=== PATIENT | male | born 1950 | race Caucasian/White ===

== ENCOUNTER → 2017-12-22 | Outpatient (CLI) | payer MEDICARE ==
[~2017-12-22] MED LIST: ADJUSTABLE COMM1 MIS; BIOTCAP PO; COQ-100C5 P-ARTICULR; CPMMACHINE; FISH100020 PO; FLUT1SPR5 EACH NARE; FLUTI44I INH; GLUC500T4 PO; MELO15TA20 PO; MONT10TA4 PO; MULT-65 PO; PREV30CA36 PO; VENTAER INH; VITA500T83 PO; VITACAP7 PO; WALKER WHEELS/F1 MIS
[2017-12-22 09:38] LABS: BILIRUBIN, URINE NEG (NEG); BLOOD, URINE TRACE (NEG); GLUCOSE,URINE NEG (NEG); KETONE, URINE NEG (NEG); NITRITE,URINE NEG (NEG); PH, URINE 6.5 (5.0-8.5); URINE COLOR YELLOW (YELLW/STRAW); URINE LEUKOCYTE ESTERASE NEG (NEG)
[2017-12-22 09:41] LABS: BASOPHIL % 0.7 % (0.0-2.0); EOSINOPHIL # 0.5 TH/MM3 (0-0.4); EOSINOPHIL % 7.7 % (0.0-4.0); HEMATOCRIT 42.1 % (39.0-51.0); HEMOGLOBIN 14.4 GM/DL (13.0-17.0); LYMPH % 23.7 % (9.0-44.0); LYMPHOCYTE # 1.6 TH/MM3 (1.0-4.8); MEAN CELL VOLUME 95.4 FL (80.0-100.0); MEAN CORPUSCULAR HEMOGLOBIN 32.6 PG (27.0-34.0); MEAN CORPUSCULAR HGB CONC 34.2 % (32.0-36.0); MEAN PLATELET VOLUME 8.4 FL (7.0-11.0); MONO % 9.1 % (0.0-8.0); MONOCYTE # 0.6 TH/MM3 (0-0.9); NEUT % 58.8 % (16.0-70.0); PLATELET COUNT 235 TH/MM3 (150-450); RED BLOOD COUNT 4.41 MIL/MM3 (4.50-5.90); RED CELL DISTRIBUTION WIDTH 14.6 % (11.6-17.2); WHITE BLOOD COUNT 6.8 TH/MM3 (4.0-11.0)
[2017-12-22 09:42] LABS: PROTHROMBIN TIME - PATIENT 10.4 SEC (9.8-11.6)
[2017-12-22 10:16] LABS: ALBUMIN 3.8 GM/DL (3.4-5.0); AST (GOT) 18 U/L (15-37); BICARBONATE 29.6 MEQ/L (21.0-32.0); BLOOD UREA NITROGEN 15 MG/DL (7-18); CALCIUM 9.2 MG/DL (8.5-10.1); CHLORIDE 105 MEQ/L (98-107); CREATININE 0.78 MG/DL (0.60-1.30); GLOMERULAR FILTRATION RATE 99 ML/MIN (>89); GLUCOSE,FASTING 102 MG/DL (74-99); SODIUM (NA) 141 MEQ/L (136-145)
[2017-12-22 10:17] LABS: ALT (GPT) 19 U/L (12-78)
[2017-12-22 10:19] LABS: ALKALINE PHOSPHATASE 68 U/L (45-117); TOTAL BILIRUBIN ADULT 0.6 MG/DL (0.2-1.0); TOTAL PROTEIN 7.6 GM/DL (6.4-8.2)
--- NOTE | 2017-12-23 00:07 | EKG ---
Date Performed: 12/22/2017 Time Performed: 08:42:47 PTAGE: 67 years EKG: SINUS BRADYCARDIA BORDERLINE ECG NO PREVIOUS TRACING DOCTOR: Brii Park Interpretating Date/Time 12/23/2017 00:01:11
== END ==
LOC: CPRE 08:17
PROVIDERS: ATTEND Surgery
DX: Z01.810 Encounter for preprocedural cardiovascular examination (principal); Z01.812 Encounter for preprocedural laboratory examination; M79.609 Pain in unspecified limb; R94.31 Abnormal electrocardiogram [ECG] [EKG]
CPT/HCPCS: 36415; 80053; 81001; 85025; 85610; 85730; 93005

== ENCOUNTER 2017-12-29 05:25 | Observation (INO) | payer MEDICARE ==
--- NOTE | 2017-12-24 15:06 | MH ---
cc: Robert Peterson MD DATE OF ADMISSION: 12/29/2017 ADMITTING DIAGNOSIS: Osteoarthritic degeneration, left knee. HISTORY OF PRESENT ILLNESS: This pleasant 67-year-old male is being admitted today for a left total knee arthroplasty due to severe painful osteoarthritic degeneration, left knee. PAST MEDICAL HISTORY: The patient has a history of asthma and arthritis. CURRENT MEDICATIONS: Include Mobic, he will stop before surgery, montelukast, Flovent, Ventolin. PAST SURGICAL HISTORY: Open reduction and internal fixation of a fracture in the past. He has had excision of a polyp. REVIEW OF SYSTEMS: Noncontributory. FAMILY HISTORY: Noncontributory. SOCIAL HISTORY: He does not smoke and is a social drinker. ALLERGIES: NO KNOWN ALLERGIES. PHYSICAL EXAMINATION: GENERAL: We find a 67-year-old male, well-developed, well-nourished, oriented x 3, complaining of pain in his left knee. VITAL SIGNS: Blood pressure 122/80, pulse 77 and regular, respirations 16, temperature 97.9, pulse oximetry 97% on room air. HEENT: Eyes PERRLA, EOMI. Ears, nose, mouth: Clear. NECK: Supple. LUNGS: Clear. HEART: Regular rate. ABDOMEN: Soft, positive bowel sounds, nontender. EXTREMITIES: Reveals the left knee to be tender with crepitance throughout range of motion. He is neurovascularly intact to his toes. IMPRESSION AT THIS TIME: Severe osteoarthritic degeneration, left knee. PLAN: Admission for left total knee arthroplasty today. The patient was given prescription for postoperative pain and anticoagulation control in the office and may be maintained on Celebrex while he is in the hospital as well. Plans on going home after surgical stay in the hospital. Robert Peterson MD JRR/TL , 02:43 PM , 03:04 PM
[~2017-12-29] VITALS: Ht 180.3 cm; Wt 87.2 kg
[~2017-12-29 05:25] MED LIST changes: -ADJUSTABLE COMM1 MIS; -CPMMACHINE; -FLUTI44I INH; -WALKER WHEELS/F1 MIS
[2017-12-29] MEDS ORDERED: TRANEXAMIC ACID INJ 875 MG in SODIUM CHLORIDE 0.9% INJ 100 ML IV SCH ×4 (06:00)
[2017-12-29] MEDS ORDERED: CHLORHEXIDINE GLUCONATE 4% SOLN 120 ML BTL TOPICAL SCH (06:00)
[2017-12-29] MEDS ORDERED: DEXAMETHASONE SOD PHOS PF 10 MG/ML VIAL IV PUSH PRN (06:00)
[2017-12-29] MEDS ORDERED: BUPIVACAINE LIPOSO PF 1.3% INJ 20 ML, BUPIVACAINE PF 0.25% INJ 20 ML in SODIUM CHLORIDE... P-ARTICULR SCH (06:00)
[2017-12-29] MEDS ORDERED: VANCOMYCIN 1 GM/200 ML PREMIX ON-CALL IV SCH (06:00)
[2017-12-29] MEDS ORDERED: CEFAZOLIN INJ 2,000 MG in SODIUM CHLORIDE 0.9% INJ 100 ML IV PRN (06:00)
[2017-12-29] MEDS ORDERED: SODIUM CHLORID 0.9% 500 ML IV PRN (06:15)
[2017-12-29] MEDS ORDERED: LACTATED RINGER'S 1000 ML IV PRN (06:15)
[2017-12-29] MEDS ORDERED: METOPROLOL TARTRATE 25 MG TAB PO PRN (06:15)
[2017-12-29] MEDS ORDERED: POVIDONE IODINE 5% (ANTISEPSIS KIT) 4 APPLICATIONS EACH NARE PRN (06:15)
[2017-12-29] MEDS ORDERED: CHLORHEXIDINE GLUCONATE 2 % 1 PACK (2 CLOTHS) TOPICAL PRN (06:15)
[2017-12-29] MEDS ORDERED: FLUTI44I INH (06:19)
[2017-12-29] MEDS ORDERED: ceFAZolin INJ 1,000 MG VIAL ONE (06:39)
[2017-12-29] MEDS ORDERED: BUPIVACAINE LIPOSOME PF 1.3% 20 ML VIAL ONE (07:02)
[2017-12-29] MEDS ORDERED: LIDOCAINE HCL 1% PF 5 ML AMPULE ONE (07:02)
[2017-12-29] MEDS ORDERED: ACETAMINOPHEN 1000 MG/100 ML 100 ML IV ONE (07:15)
--- NOTE | 2017-12-29 10:13 | HHI.FF ---
Face to Face Verification Diagnosis: (1) Status post total left knee replacement using cement Physical Therapy Gait training Knee: Total knee, Protocol: Left, Gait training, Full weight bearing Canvas Knee Splint: When in bed & 2 pillows btw thighs Nursing RN: 3 days/week x 2 weeks Nursing: Dressing changes Dressing Changes: Daily dressing change, 4x4s, Gauze, Paper tape I have seen patient Last [facility] on 12/29/17. My clinical findings support the need for the requested home health care services because: Limited ability to care for self High risk of falls I certify that my clinical findings support that this patient is homebound because: Unsteady gait/balance Robert Peterson MD Dec 29, 2017 10:13
[2017-12-29] MEDS ORDERED: TEMAZEPAM 15 MG CAP PO PRN (10:15)
[2017-12-29] MEDS ORDERED: Post-op Orders (for Pharmacy) XX ONE (10:15)
[2017-12-29] MEDS ORDERED: ONDANSETRON HCL 4 MG/2 ML VIAL IVP PRN (10:15)
[2017-12-29] MEDS ORDERED: CPMMACHINE (10:15)
[2017-12-29] MEDS ORDERED: ADJUSTABLE COMM1 MIS (10:15)
[2017-12-29] MEDS ORDERED: ACETAMINOPHEN/HYDROcodone 325 MG/7.5 MG TAB PO PRN (10:15)
[2017-12-29] MEDS ORDERED: ACETAMINOPHEN 325 MG TAB PO PRN (10:15)
[2017-12-29] MEDS ORDERED: WALKER WHEELS/F1 MIS (10:15)
[2017-12-29] MEDS ORDERED: TRANEXAMIC ACID INJ 870 MG in SODIUM CHLORIDE 0.9% INJ 100 ML IV SCH (10:15)
[2017-12-29] MEDS ORDERED: NALOXONE HCL 0.4 MG/ML AMP IV PUSH PRN (10:15)
[2017-12-29] MEDS ORDERED: diphenhydrAMINE HCL 50 MG/ML VIAL IV PUSH PRN (10:15)
[2017-12-29] MEDS ORDERED: DO NOT ADM ANY ANTICOAGULANT DRUGS PRN (10:30)
[2017-12-29] MEDS ORDERED: MIDAZOLAM HCL 2 MG/2 ML VIAL ONE (10:34)
--- NOTE | 2017-12-29 10:59 | HHI.PR ---
Immediate Post Op Note Procedure Date: Dec 29, 2017 Pre Op Diagnosis: severe painful osteoarthritic degeneration, left knee. Post Op Diagnosis: osteoarthritic degeneration, left knee. Surgeon: Dr. Oni Peterson MD Bench Lay Out Technician(s): Marisol ORNELAS Procedure: Left Total Knee Arthroplasty Complications: none Specimen(s) removed: none Estimated blood loss: 100 cc Anesthesia: General Drains: None IVF Urinary Output (mLs): 0 (No bae) Tourniquet time (min at mmHg) 53 mins at 300mmHg Patient to: PACU Patient Condition: Good Implant/Devices: SEE IMPLANT LOG (if applicable) Date/Time of Procedure: SEE SURGICAL CARE RECORD Marisol Velazquez Dec 29, 2017 10:59
[2017-12-29] MEDS: LACTATED RINGER'S 1000 ML INJ 1,000 ML IV SCH ×2 (11:20→22:52)
--- NOTE | 2017-12-29 11:38 | RADRPT ---
EXAM DATE/TIME: 12/29/2017 10:50 [facility] COMPARISON: No previous studies available for comparison. INDICATIONS : Post-op Left knee replacement. MEDICAL HISTORY : None. SURGICAL HISTORY : Total knee replacement, left. ENCOUNTER: Initial ACUITY: 1 day PAIN SCORE: Non-responsive. LOCATION: Left Knee FINDINGS: Total knee arthroplasty with normal alignment of the osseous structures. The hardware appears intact . There is some gas seen in the suprapatellar bursa. External gauze and packing in place. CONCLUSION: Expected postoperative findings from total knee arthroplasty. Flavio Washington MD on December 29, 2017 at 11:35 Board Certified Radiologist. This report was verified electronically.
[2017-12-29] MEDS ORDERED: LIDOCAINE HCL 1% PF 5 ML SYRINGE OTHER ONE (12:00)
[2017-12-29] MEDS ORDERED: PROPOFOL 200 MG/20 ML AMP IV ONE (12:00)
[2017-12-29] MEDS ORDERED: ROCURONIUM INJ 50 MG/5 ML SYRINGE IV PUSH ONE (12:00)
[2017-12-29] MEDS ORDERED: ONDANSETRON HCL 4 MG/2 ML VIAL IV ONE (12:00)
[2017-12-29] MEDS ORDERED: ePHEDrine/NS 25 MG/5 ML SYRINGE IV ONE (12:00)
--- NOTE | 2017-12-29 13:08 | MP ---
cc: Robert Peterson MD DATE OF OPERATION: 12/29/2017 PREOPERATIVE DIAGNOSIS: Osteoarthritic degeneration, left knee. POSTOPERATIVE DIAGNOSIS: Osteoarthritic degeneration, left knee. PROCEDURE PERFORMED: Left total knee arthroplasty using Consensus components size 5 femur, 4 tibia, 10 standard insert and a size 2 patella with 2 batches of DePuy cement. SURGEON: Robert Peterson MD BOX CAR LOADER: JOHNSON Ramos. ANESTHESIA: General intubation and block. PROCEDURE IN DETAIL: After successful induction of anesthesia, the patient is placed on the operating room table in the supine position. The knee is prepped and draped in the usual manner. A tourniquet is inflated at the upper thigh and set to 300 mmHg pressure after exsanguination of the lower extremity. A longitudinal incision is made extending from 3 inches proximal to the superior pole of the patella, across the patella in longitudinal fashion, and down past the insertion of the tibial tubercle into the proximal tibia. The incision is carried down through subcutaneous tissue along the medial aspect of the patella and retinaculum, down through the capsule to expose the knee joint. The patella and patellar tendon are freed up enough to allow the patella to be inverted and retracted off the lateral side of the knee joint. The knee joint is left exposed. Small osteophytes are removed. All soft tissue is removed to allow proper position of the femoral and tibial cutting jig guide. The first femoral jig is then inserted along the distal end of the femur after first measuring to decide whether this is a small, medium, or large component. The notch is then drilled and the tibial cutting guide inserted into the femoral cutting guide, along with the ankle brace to allow for proper measurement of the tibial cutting surface that needed to be resected. Pins are inserted into the tibial cutting jig and femoral cutting jig to hold them in place. An oscillating saw is then used to resect the surface of the tibia. The surface of the tibia is then completely removed using sharp and blunt dissection. The anterior and posterior cuts of the femur are then made as well using an oscillating saw through the cutting guide. All guides are then removed and the varus/valgus angulation cutting guide applied to the femur for proper measurement of the proper amount of valgus. The anterior cutting guide for the femur is then inserted at the anterior femoral cuts made. Next, the first block trial is inserted into the femur to allow for proper condyle drill holes to be made which are then made followed by removal of the bone between the condyles using an oscillating saw as well as the bone removed at the most posterior surface of the condyle. After this, this guide is removed and the chamfer cuts made using the chamfer cutting guide from both anterior and posterior. Next, the femoral trial is then inserted, the tibial surface reflected anterior to expose the tibial surface and a tibial stem guide is inserted after first measuring for a standard, standard plus, large, or large plus surface to be used. After the stem is impacted the trial tibial surface is applied followed by the trial meniscal components. After full range of motion is found with the appropriate length meniscal components varying the patella is prepared by resecting the posterior aspect of the patella using an oscillating saw, inserting a trial. The trial is then removed and the cruciate cutting guide applied using the bur to cut the cruciate cuts. After cruciate cuts are made all trials are removed. The wound is irrigated copiously with antibiotic solution and Water Pik and the actual components inserted into place using the aforementioned components. Tourniquet deflated. Total tourniquet time being 53 minutes at 300 mmHg pressure. 120 mL of Exparel used as extra pain control around the wound. The deep fascia approximated with running #2 Quill. Subcutaneous tissue approximated using interrupted and running 2-0 and 4-0 Monocryl sutures, steri-Strips, sterile dressing and knee immobilizer. No drain utilized. ESTIMATED BLOOD LOSS: 100 mL. COUNTS: Sponge and suture counts correct. The patient tolerated the procedure well and left the operating room in satisfactory condition. JOHNSON Ramos was present during the entire procedure to include the patient positioning for the procedure. The medical necessity of the nurse practitioner as recruitment and outreach assistant was indicated in this case due to the surgical complexity of the case itself. During the surgical case, the operating room surgical technologist was working the back table while my surgical tech JOHNSON was directly assisting me. J. Oni Peterson MD JRR/DL , 10:17 AM , 10:40 AM
[2017-12-29] MEDS ORDERED: *morphine SULFATE 4 MG/ML PERIprocedure ONLY ONE (13:19)
[2017-12-29] MEDS: ACETAMINOPHEN/HYDROcodone 325 MG/7.5 MG TAB PO PRN ×2 (15:20→19:53)
[2017-12-29 17:30] VITALS: BP 109/55; PULSE 111; RESP 18; TEMP 98.6; O2SAT 99
[2017-12-29 20:25] VITALS: BP 100/52; PULSE 81; RESP 18; TEMP 98.9; O2SAT 95
[2017-12-29] MEDS: FLUTICASONE PROPIONATE 50 MCG/ACT 16 GM NASAL SPRAY NASAL SCH (21:00)
[2017-12-29] MEDS: ALBUTEROL SULFATE 90 MCG/ACT HFA 8 GM INHALER INH SCH (21:00)
[2017-12-30 00:19] VITALS: BP 106/56; PULSE 86; RESP 18; TEMP 97.4; O2SAT 95
[2017-12-30 03:47] VITALS: BP 114/63; PULSE 86; RESP 18; TEMP 98.1; O2SAT 96
[2017-12-30] MEDS: ACETAMINOPHEN/HYDROcodone 325 MG/7.5 MG TAB PO PRN ×3 (04:00→12:29)
[2017-12-30] MEDS: MORPHINE SULFATE 4 MG/ML INJ IV PUSH PRN ×2 (05:03→08:11)
[2017-12-30 06:57] LABS: HEMATOCRIT 34.8 % (39.0-51.0)
[2017-12-30 08:00] VITALS: BP 112/58; PULSE 61; RESP 16; TEMP 98; O2SAT 96
[2017-12-30] MEDS: FLUTICASONE PROPIONATE 50 MCG/ACT 16 GM NASAL SPRAY NASAL SCH (08:13)
[2017-12-30] MEDS: ALBUTEROL SULFATE 90 MCG/ACT HFA 8 GM INHALER INH SCH (08:13)
[2017-12-30] MEDS ORDERED: NON-FORMULARY DRUG (Omega-3 Fatty Acids (Fish Oil 1000 mg) 1 CAP) PO SCH (09:00)
[2017-12-30] MEDS ORDERED: MONTELUKAST SODIUM 10 MG TAB PO SCH (09:00)
[2017-12-30] MEDS ORDERED: ASCORBIC ACID 500 MG TAB PO SCH (09:00)
[2017-12-30] MEDS ORDERED: NON-FORMULARY DRUG (Biotin 5 MG) PO SCH (09:00)
[2017-12-30] MEDS ORDERED: PANTOPRAZOLE SOD 40 MG DELAYED RELEASE TAB PO SCH (09:00)
[2017-12-30] MEDS ORDERED: COENZYME Q10 300 MG P-ARTICULR SCH (09:00)
[2017-12-30] MEDS ORDERED: GLUCOSAMINE CHONDROITIN PO SCH (09:00)
[2017-12-30] MEDS ORDERED: MULTIVITAMIN TAB PO SCH (09:00)
[2017-12-30] MEDS ORDERED: VITAMIN B COMPLEX/VIT C TAB PO SCH (09:00)
[2017-12-30] MEDS ORDERED: APIXABAN 2.5 MG TABLET PO SCH (10:00)
[2017-12-30] MEDS: LACTATED RINGER'S 1000 ML INJ 1,000 ML IV SCH (11:06)
--- NOTE | 2017-12-30 12:16 | PD.ORT.PN ---
Subjective Subjective Remarks Pt comfortable today. some pain in thigh. Objective Vitals Vital Signs Date Time Temp Pulse Resp B/P (MAP) Pulse Ox O2 Delivery O2 Flow Rate FiO2 12/30/17 08:00 98.0 61 16 112/58 (76) 96 12/30/17 03:47 98.1 86 18 114/63 (80) 96 12/30/17 00:19 97.4 86 18 106/56 (73) 95 12/29/17 20:25 98.9 81 18 100/52 (68) 95 12/29/17 17:30 98.6 111 18 109/55 (73) 99 12/29/17 16:00 92 14 101/56 (71) 95 Room Air 12/29/17 15:00 90 15 112/58 (76) 97 Room Air I/O 12/29/17 12/29/17 12/29/17 12/30/17 12/30/17 12/30/17 07:00 15:00 23:00 07:00 15:00 23:00 Intake Total 1140 ml 480 ml Output Total 3550 ml 500 ml Balance -2410 ml -20 ml Intake Oral 240 ml 480 ml IV Total 900 ml Output Urine Total 450 ml 500 ml Estimated Blood Loss 100 ml Other 3000 ml # Voids 1 # Bowel Movements 0 Result Diagram: 12/30/17 0546 Imaging Last 48 hours Impressions Knee X-Ray 12/29/17 1006 Signed Impressions: Service Date/Time: Friday, December 29, 2017 10:50 - CONCLUSION: Expected postoperative findings from total knee arthroplasty. Flavio Washington MD Objective Remarks Dressing dry and intact. Min swelling. Neg Josiah's sign. On CPM at present. Assessment & Plan Ortho Post Op Day #: 1 Problem List: Assessment and Plan Home today with HHC and PT. To office next week. Robert Peterson MD Dec 30, 2017 12:16
[2017-12-30] MEDS ORDERED: DOCUSATE SODIUM 100 MG CAP PO SCH (21:00)
[2017-12-31] MEDS ORDERED: BACITRACIN OINT 0.9 GM PKT TOP PRN (10:15)
== END 2017-12-30 14:29 | disposition home health service (06) ==
LOC: HSDC 05:25 → EDUNIT# 07:30 → N06A 17:16 → N06B 12-30 13:17
PROVIDERS: ADMIT Surgery; ATTEND Surgery
DX: M17.12 Unilateral primary osteoarthritis, left knee (principal); J45.909 Unspecified asthma, uncomplicated
CPT/HCPCS: 01400; 27442; 64447; 73560; 85014; 85018; 86850; 86900; 86901; 94150; 96365; 96366; 96375; 96376; 97110; 97116; 97150; 97162; 97166; C1776; C9290; G0378; G8987; G8988; J0131; J0690; J1100; J2250; J2270; J2405; J3010; J3370; J7120; L1830